=== PATIENT | female | born 1965 | race African-American/Black ===

== ENCOUNTER 2021-08-20 06:47 | Emergency (ER) | payer OTHER ==
[2021-08-20 07:25] VITALS: TEMP 97.8; BMI 19.2
[2021-08-20] MEDS ORDERED: SODIUM CHLORIDE 0.9% 500 ML INFUS.BAG IV ONE ×2 (08:41→12:47)
[2021-08-20 10:19] LABS: INR 1.16 (0.83-1.09)
[2021-08-20 10:22] LABS: ACTIVATED PTT 28.9 SECONDS (25.2-36.5)
[2021-08-20 10:33] LABS: HEMATOCRIT 39.2 % (32.4-45.2); HEMOGLOBIN 13.3 GM/dL (10.7-15.3); MEAN CELL VOLUME 88.4 fl (80-96); MEAN PLT VOLUME 8.5 fl (7.5-11.1); MONO % 7.3 % (3.8-10.2); NEUT % 60.7 % (42.8-82.8); PLATELET COUNT 319 10^3/uL (134-434); RBC 4.43 M/mm3 (3.60-5.2); RDW 13.3 % (11.6-15.6); WHITE BLOOD COUNT 7.3 K/mm3 (4.0-10.0)
[2021-08-20 10:37] LABS: ARTERIAL BLD GAS O2 SATURATION 98.2 % (95-98); ARTERIAL BLOOD GAS BASE EXCESS -1.5 mmol/L (-2-2); ARTERIAL BLOOD GAS PO2 119.8 mmHg (80-100); ARTERIAL BLOOD GAS pH 7.358 (7.350-7.450)
[2021-08-20 12:32] LABS: EPI CELLS 17 /uL (0-25.1); HYALINE CASTS 2 /uL (0-3.1); PH,URINE 6.5 (5.0-8.0); URINE APPEARANCE CLEAR; URINE BACTERIA 32 /uL (0-1359); URINE BILIRUBIN NEGATIVE (NEGATIVE); URINE COLOR YELLOW; URINE GLUCOSE (UA) NEGATIVE (NEGATIVE); URINE KETONE NEGATIVE (NEGATIVE); URINE LEUK ESTERASE 2+ (NEGATIVE); URINE NITRITE NEGATIVE (NEGATIVE); URINE PROTEIN NEGATIVE (NEGATIVE); URINE RBC 6 /uL (0-23.9); URINE WBC 63 /uL (0-25.8)
[2021-08-20 13:27] VITALS: BP 117/51; PULSE 66
[2021-08-20 14:41] LABS: ALBUMIN 3.3 g/dl (3.4-5.0); BLOOD UREA NITROGEN 9.8 mg/dL (7-18)
[2021-08-20 14:44] LABS: CREATININE 0.8 mg/dL (0.55-1.3)
[2021-08-20 14:46] LABS: BILIRUBIN,TOTAL 0.6 mg/dL (0.2-1); TOT PROT 7.4 g/dl (6.4-8.2)
== END 2021-08-20 15:52 | disposition home or self-care (01) ==
LOC: JER 06:47
DX: R55 Syncope and collapse (principal)
CPT/HCPCS: 36415; 36600; 71045-TC-FY; 80053; 81003; 82375; 82550; 82803; 84443; 84484; 85025; 85610; 85730; 93005; 93010; 99285-25; C9803; U0003; U0005